=== PATIENT | female | born 1990 ===

== ENCOUNTER 2021-08-23 20:47 | Inpatient (IN) | payer BC ==
[2021-08-23] MEDS ORDERED: Nalbuphine 10 MG/1 ML Vial IVPUSH PRN (21:50)
[2021-08-23] MEDS ORDERED: Misoprostol 200 MCG Tab PO PRN (21:50)
[2021-08-23] MEDS ORDERED: Sodium Chloride 0.9% 10 ML Syringe FLUSH PRN (21:50)
[2021-08-23] MEDS ORDERED: Lidocaine 1% 50 ML MDV INJECT PRN (21:50)
[2021-08-23] MEDS ORDERED: Butorphanol 1 MG/ML SDV IVPUSH PRN (21:50)
[2021-08-23] MEDS ORDERED: Methylergonovine 0.2 MG/1 ML Amp IM PRN (21:50)
[2021-08-23] MEDS ORDERED: Sodium Chloride 0.9% 10 ML SDV IV PRN (21:50)
[2021-08-23] MEDS ORDERED: Tranexamic Acid 1,000 MG in Sodium Chloride 0.9% 100 ML IV PRN (21:50)
[2021-08-23] MEDS ORDERED: Carboprost Tromethamine 250 MCG/1 ML Amp IM PRN (21:50)
[2021-08-23] MEDS ORDERED: Water For Irrigation,Sterile 1,000 ML Container IRR PRN (21:50)
[2021-08-23] MEDS ORDERED: Sodium Chloride 0.9% 2.5 ML Syringe FLUSH PRN (21:50)
[2021-08-23] MEDS ORDERED: Oxytocin/0.9 % Sodium Chloride 30 UNIT/500 ML BAG IV SCH (22:00)
[2021-08-23] MEDS: Lactated Ringers 1,000 ML IV SCH ×2 (22:10→23:40)
--- NOTE | 2021-08-23 22:47 | PCM.PREANE ---
Preanesthetic Assessment - Anesthesia/Transfusion/Family Hx Anesthesia History: No Prior Anesthesia Family History of Anesthesia Reaction: No Transfusion History: No Prior Transfusion(s) - Review of Systems General: No Symptoms Pulmonary: No Symptoms Cardiovascular: No Symptoms Gastrointestinal: No Symptoms Neurological: No Symptoms Other: Reports: None - Physical Assessment NPO Status Date: 08/23/21 NPO Status Time: 20:00 Height: 1.57 m Weight: 62.142 kg ASA Class: 2 Mental Status: Alert & Oriented x3 Airway Class: Mallampati = 2 Dentition: Reports: Normal Dentition Thyro-Mental Finger Breadths: 3 Mouth Opening Finger Breadths: 2 ROM/Head Extension: Full Lungs: Clear to Auscultation, Normal Respiratory Effort Cardiovascular: Regular Rate, Regular Rhythm - Lab Values: Laboratory Last Values Membrane Rupture POSITIVE 08/23/21 21:10 - Allergies Allergies/Adverse Reactions: Allergies Allergy/AdvReac Type Severity Reaction Status Date / Time No Known Allergies Allergy Verified 08/23/21 21:02 - Blood Blood Available: Yes Product(s) Available: PRBC (Type and Cross) - Anesthesia Plan Pre-Op Medication Ordered: None - Acknowledgements Anesthesia Type Planned: Epidural Pt an Appropriate Candidate for the Planned Anesthesia: Yes Alternatives and Risks of Anesthesia Discussed w Pt/Guardian: Yes Pt/Guardian Understands and Agrees with Anesthesia Plan: Yes PreAnesthesia Questionnaire - HOME MEDS Home Medications: Home Meds . [No Known Home Meds] 08/23/21 [History] - CURRENT (IN HOUSE) MEDS Current Meds: Current Medications Butorphanol Tartrate (Butorphanol 1 Mg/Ml Sdv) 1 mg IVPUSH Q1H PRN PRN Reason: Pain (severe 7-10) Carboprost Tromethamine (Carboprost Tromethamine 250 Mcg/1 Ml Amp) 250 mcg IM ASDIRECTED PRN PRN Reason: Post Hemorrhage Lactated Ringer's (Ringers, Lactated) 1,000 mls @ 150 mls/hr IV ASDIRECTED [facility] Last Admin: 08/23/21 22:10 Dose: 150 mls/hr Documented by: Oxytocin/Sodium Chloride (Oxytocin 30 Unit In Ns 0.9% 500 Ml Premix) 30 unit in 500 mls @ 500 mls/hr IV TITRATE [facility] Tranexamic Acid 1,000 mg/ (Sodium Chloride) 110 mls @ 660 mls/hr IV ONETIME PRN PRN Reason: Bleeding Lidocaine HCl (Lidocaine 1% 50 Ml Mdv) 50 ml INJECT ONETIME PRN PRN Reason: Laceration repair Methylergonovine Maleate (Methylergonovine 0.2 Mg/1 Ml Amp) 0.2 mg IM ASDIRECTED PRN PRN Reason: Post Hemorrhage Misoprostol (Misoprostol 200 Mcg Tab) 200 mcg PO ONETIME PRN PRN Reason: Post Hemorrhage Nalbuphine HCl (Nalbuphine 10 Mg/1 Ml Vial) 10 mg IVPUSH Q1H PRN PRN Reason: Pain (severe 7-10) Sodium Chloride (Sodium Chloride 0.9% 10 Ml Syringe) 10 ml FLUSH ASDIRECTED PRN PRN Reason: Keep Vein Open Sodium Chloride (Sodium Chloride 0.9% 2.5 Ml Syringe) 2.5 ml FLUSH ASDIRECTED PRN PRN Reason: Keep Vein Open Sodium Chloride (Sodium Chloride 0.9% 10 Ml Sdv) 10 ml IV ASDIRECTED PRN PRN Reason: IV Use Sterile Water (Water For Irrigation,Sterile 1,000 Ml Container) 1,000 ml IRR ASDIRECTED PRN PRN Reason: delivery
[2021-08-23] MEDS ORDERED: ePHEDrine 50 MG/ML SDV IVPUSH PRN (22:48)
[2021-08-23] MEDS ORDERED: Ropivacaine HCl/PF 200 ML ONE (23:00)
[2021-08-23] MEDS ORDERED: Ropivacaine/PF 400 MG/200 ML PCA EPIDUR SCH (23:00)
--- NOTE | 2021-08-23 23:47 | PCM.SN.2 ---
Time Documentation - Pre-Procedure Checklist Attending Provider Aware: Yes Chart Reviewed: Yes Consent Signed: Yes Labs Reviewed: Yes VS/FHR Reviewed: Yes Patient Identification Confirmation Method: Reports: Chart Visual, Verbal Patient Pt an Appropriate Candidate for the Planned Anesthesia: Yes Alternatives and Risks of Anesthesia Discussed w Pt/Guardian: Yes - Procedure Procedure Start Date: 08/23/21 Procedure Start Time: 23:[address]: Reports: Blood Pressure, Heart Rate, SPO2 Functional IV: Yes Bolus Infused (fluid type and amount): 1000 lr Safety Measures: Reports: Patient Identified, Procedure Verified, Site Verified, Procedure Time Out Patient Position: Reports: Sitting Prep: Reports: Betadine x3 Local Anesthetic: Reports: Intradermal Wheal w Lidocaine 1% (3 ml) Regional Placement Level: Reports: L3-4 Needle: Reports: 17 g Touhy Approach: Reports: Midline Technique: Reports: ROBERT Glass Syringe ROBERT Needle Depth (cm): 6 cm Parasthesia: Reports: None Fluid Obtained: Reports: None Catheter Depth at Skin (cm): 15 cm Test Dose Time: 23:29 Test Dose Medication: Reports: Lidocaine 1.5% w Epinephrine 1:200,000 (5 ml) Test Dose Response: Reports: Negative Loading Dose Time: 23:35 Loading Dose Medication: Ropivicaine 0.2% Loading Dose Patient Position: Supine Continuous Infusion Start Time: 23:36 Continuous Infusion Medication: Ropivicaine 0.2% Continuous Infusion Rate: 10 Continuous Infusion PCS Bolus Option: 4 Continuous Infusion Lockout Dose (cc/hr): 15 Patient Position Post Placement: Reports: Supline/BECKI Post-procedure Pain Level: 2 Level Achieved: t4 VS and FHR Monitored in Unit Post Placement: Yes Procedure End Date: 08/24/21 Procedure End Time: 00:10 Procedure Comment: Sterile technique used throughout
--- NOTE | 2021-08-23 23:48 | PCM.POSTAN ---
POST ANESTHESIA ASSESSMENT - MENTAL STATUS Mental Status: Alert, Oriented - RESPIRATORY Respiratory Status: Respiratory Rate WNL, Airway Patent, O2 Saturation Stable - CARDIOVASCULAR CV Status: Pulse Rate WNL, Blood Pressure Stable - GASTROINTESTINAL GI Status: No Symptoms - PAIN Pain Score: 2 - POST OP HYDRATION Hydration Status: Adequate & Stable
--- NOTE | 2021-08-24 01:01 | PCM.LDHP ---
L&D History of Present Illness - General Date of Service: 08/24/21 Admit Problem/Dx: Patient Status Order with Admit Dx/Problem 08/23/21 20:41 Patient Status [ADT] Routine 08/23/21 21:51 Patient Status [ADT] Routine Admission Diagnosis/Problem Admission Diagnosis/Problem - History of Present Illness Introduction:: 30yo at 38w1d RUDY 09/06/2021 by LMP confirmed with 10w6d US presenting with rupture of membranes. Patient had gush of clear fluid around 7PM, continue to having leaking after. She started having strong contractions as well after presenting to labor and delivery. was uncomplicated. GBS negative. Pain Score: 2 - Related Data Allergies/Adverse Reactions: Allergies Allergy/AdvReac Type Severity Reaction Status Date / Time No Known Allergies Allergy Verified 08/23/21 21:02 Home Medications: Home Meds . [No Known Home Meds] 08/23/21 [History] H&P Review of Systems - Review of Systems: Review Of Systems: See Below General: Reports: No Symptoms HEENT: Reports: No Symptoms Pulmonary: Reports: No Symptoms Cardiovascular: Reports: No Symptoms Gastrointestinal: Reports: No Symptoms Genitourinary: Reports: Other (Loss of fluid, contractions) Musculoskeletal: Reports: No Symptoms Skin: Reports: No Symptoms Psychiatric: Reports: No Symptoms Neurological: Reports: No Symptoms Hematologic/Lymphatic: Reports: No Symptoms Immunologic: Reports: No Symptoms L&D Exam - Exam Exam: See Below - Vital Signs Weight: 137 lb - OB Specific Contraction Intensity: Moderate to Strong Movement: Active Heart Tones per Min: 120 Heart Rate (FHR) Variability: Moderate (6-25 bpm) Presentation: Vertex - Exam General: Alert, Oriented, Cooperative HEENT: Conjunctiva Clear, EACs Clear, EOMI Neck: Supple, Trachea Midline Lungs: Normal Respiratory Effort GI/Abdominal Exam: Soft, Non-Tender, No Distention Genitourinary: Other (4cm dilated per patient nurse, amniosure positive) Back Exam: Normal Inspection Extremities: Normal Inspection, Normal Range of Motion, Non-Tender, No Pedal Edema Skin: Warm, Dry, Intact Neurological: Cranial Nerves Intact, Reflexes Equal Bilateral Psychiatric: Alert, Normal Affect, Normal Mood - Patient Data Lab Results Last 24 hrs: Laboratory Results - last 24 hr 08/23/21 08/23/2121 Range/Units 21:10 22:10 22:10 WBC 9.65 (4.0-11.0) K/uL RBC 4.33 (4.30-5.90) M/uL Hgb 10.9 L (12.0-16.0) g/dL Hct 32.8 L (36.0-46.0) % MCV 75.8 L (80.0-98.0) fL MCH 25.2 L (27.0-32.0) pg MCHC 33.2 (31.0-37.0) g/dL RDW Std Deviation 38.7 (28.0-62.0) fl RDW Coeff of So 14 (11.0-15.0) % Plt Count 190 (150-400) K/uL MPV 11.80 (7.40-12.00) fL Nucleated RBC % 0.0 /100WBC Nucleated RBCs # 0 K/uL Membrane Rupture POSITIVE SARS-CoV-2 RNA ([facility]) (NEGATIVE) Blood Type B POSITIVE Antibody Screen NEGATIVE 08/23/21 Range/Units 22:30 WBC (4.0-11.0) K/uL RBC (4.30-5.90) M/uL Hgb (12.0-16.0) g/dL Hct (36.0-46.0) % MCV (80.0-98.0) fL MCH (27.0-32.0) pg MCHC (31.0-37.0) g/dL RDW Std Deviation (28.0-62.0) fl RDW Coeff of So (11.0-15.0) % Plt Count (150-400) K/uL MPV (7.40-12.00) fL Nucleated RBC % /100WBC Nucleated RBCs # K/uL Membrane Rupture SARS-CoV-2 RNA ([facility]) NEGATIVE (NEGATIVE) Blood Type Antibody Screen Result Diagrams: 08/23/21 22:10 Problem List Initiated/Reviewed/Updated: Yes Orders Last 24hrs: Active Orders 24 hr Category Date Time Status Patient Status [ADT] Routine ADT 08/23/21 20:41 Active Patient Status [ADT] Routine ADT 08/23/21 21:51 Active Communication Order [RC] PRN Care 08/23/21 22:48 Active Heart Tones [RC] CONTINUOUS Care 08/23/21 21:51 Active Non Stress Test [RC] PER UNIT ROUTINE Care 08/23/21 20:41 Active Non Stress Test [RC] PER UNIT ROUTINE Care 08/23/21 21:51 Active May Shower [RC] ASDIRECTED Care 08/23/21 21:51 Active Notify Provider [RC] PRN Care 08/23/21 21:51 Active Up ad Evonne [RC] ASDIRECTED Care 08/23/21 21:26 Active Up ad Evonne [RC] ASDIRECTED Care 08/23/21 21:51 Active Vaginal Exam [RC] Click to Edit Care 08/23/21 21:26 Active Vaginal Exam [RC] PRN Care 08/23/21 21:51 Active Vital Signs [RC] PER UNIT ROUTINE Care 08/23/21 21:26 Active Vital Signs [RC] PER UNIT ROUTINE Care 08/23/21 21:51 Active RPR (SYPHILIS SERO) W/ RFLX [REF] Routine Lab 08/23/21 22:28 Received Butorphanol [Stadol] Med 08/23/21 21:50 Active 1 mg IVPUSH Q1H PRN Carboprost Tromethamine [Hemabate DS] Med 08/23/21 21:50 Active 250 mcg IM ASDIRECTED PRN Lactated Ringers [Ringers, Lactated] 1,000 ml Med 08/23/21 22:00 Active IV ASDIRECTED Lidocaine 1% [Xylocaine 1%] Med 08/23/21 21:50 Active 50 ml INJECT ONETIME PRN Methylergonovine [Methergine] Med 08/23/21 21:50 Active 0.2 mg IM ASDIRECTED PRN Nalbuphine [Nubain] Med 08/23/21 21:50 Active 10 mg IVPUSH Q1H PRN Oxytocin/0.9 % Sodium Chloride [Oxytocin 30 Unit in NS Med 08/23/21 22:00 Active 0.9% 500 ML Premix] 30 unit in 500 ml IV TITRATE Phenylephrine HCl In 0.9% NaCl [Phenylephrine 1 MG/10 Med 08/23/21 22:48 Active ML-NS] 0.1 mg IVPUSH Q1M PRN Ropivacaine HCl/PF [Ropivacaine 0.2% [employer]ENDANT 400 MG in 200 Med 08/23/21 23:00 Active ML] 400 mg EPIDUR ASDIRECTED Sodium Chloride 0.9% [Normal Saline] Med 08/23/21 21:50 Active 10 ml IV ASDIRECTED PRN Sodium Chloride 0.9% [Saline Flush] Med 08/23/21 21:50 Active 10 ml FLUSH ASDIRECTED PRN Sodium Chloride 0.9% [Saline Flush] Med 08/23/21 21:50 Active 2.5 ml FLUSH ASDIRECTED PRN Tranexamic Acid [Cyklokapron] 1,000 mg Med 08/23/21 21:50 Active Sodium Chloride 0.9% [Normal Saline] 100 ml IV ONETIME Water For Irrigation,Sterile [Sterile Water for Med 08/23/21 21:50 Active Irrigation] 1,000 ml IRR ASDIRECTED PRN ePHEDrine [ePHEDrine sulfate] Med 08/23/21 22:48 Active 10 mg IVPUSH Q1M PRN miSOPROStoL [Cytotec] Med 08/23/21 21:50 Active 200 mcg PO ONETIME PRN Scalp Electrode [WOMSER] Per Unit Routine Oth 08/23/21 21:51 Ordered Peripheral IV Insertion Adult [OM.PC] Routine Oth 08/23/21 21:51 Ordered Resuscitation Status Routine Resus Stat 08/23/21 21:26 Ordered Medication Orders Butorphanol Tartrate (Butorphanol 1 Mg/Ml Sdv) 1 mg IVPUSH Q1H PRN PRN Reason: Pain (severe 7-10) Carboprost Tromethamine (Carboprost Tromethamine 250 Mcg/1 Ml Amp) 250 mcg IM ASDIRECTED PRN PRN Reason: Post Hemorrhage Ephedrine Sulfate (Ephedrine 50 Mg/Ml Sdv) 10 mg IVPUSH Q1M PRN PRN Reason: Hypotension Lactated Ringer's (Ringers, Lactated) 1,000 mls @ 150 mls/hr IV ASDIRECTED [facility] Last Admin: 08/23/21 23:40 Dose: 150 mls/hr Documented by: Infusion: 08/23/21 23:40 Dose: 150 mls/hr Documented by: Admin: 08/23/21 22:10 Dose: 150 mls/hr Documented by: RATLRAC Oxytocin/Sodium Chloride (Oxytocin 30 Unit In Ns 0.9% 500 Ml Premix) 30 unit in 500 mls @ 500 mls/hr IV TITRATE [facility] Tranexamic Acid 1,000 mg/ (Sodium Chloride) 110 mls @ 660 mls/hr IV ONETIME PRN PRN Reason: Bleeding Lidocaine HCl (Lidocaine 1% 50 Ml Mdv) 50 ml INJECT ONETIME PRN PRN Reason: Laceration repair Methylergonovine Maleate (Methylergonovine 0.2 Mg/1 Ml Amp) 0.2 mg IM ASDIRECTED PRN PRN Reason: Post Hemorrhage Miscellaneous Medication (Phenylephrine Hcl In 0.9% Nacl 1 Mg/10 Ml Syringe) 0.1 mg IVPUSH Q1M PRN PRN Reason: Hypotension Misoprostol (Misoprostol 200 Mcg Tab) 200 mcg PO ONETIME PRN PRN Reason: Post Hemorrhage Nalbuphine HCl (Nalbuphine 10 Mg/1 Ml Vial) 10 mg IVPUSH Q1H PRN PRN Reason: Pain (severe 7-10) Ropivacaine (Ropivacaine/Pf 400 Mg/200 Ml Cloth Hauler) 400 mg EPIDUR ASDIRECTED [facility] Sodium Chloride (Sodium Chloride 0.9% 10 Ml Syringe) 10 ml FLUSH ASDIRECTED PRN PRN Reason: Keep Vein Open Sodium Chloride (Sodium Chloride 0.9% 2.5 Ml Syringe) 2.5 ml FLUSH ASDIRECTED PRN PRN Reason: Keep Vein Open Sodium Chloride (Sodium Chloride 0.9% 10 Ml Sdv) 10 ml IV ASDIRECTED PRN PRN Reason: IV Use Sterile Water (Water For Irrigation,Sterile 1,000 Ml Container) 1,000 ml IRR ASDIRECTED PRN PRN Reason: delivery Assessment/Plan Comment:: 30yo at 38w1d presenting with SROM and early labor. Rupture confirmed with amniosure - will admit to L&D - labs CBC, RPR, T&S, COVID 19 test - Cat 1 tracing - Blood type B+, Rubella immune - GBS negative - Desires epidural Expectantly manage. Anticipate vaginal delivery.
[2021-08-24] MEDS ORDERED: Misoprostol 200 MCG Tab RECTAL PRN (05:59)
[2021-08-24] MEDS ORDERED: Methylergonovine 0.2 MG/1 ML Amp IM PRN (05:59)
[2021-08-24] MEDS ORDERED: Ibuprofen 400 MG Tab PO PRN (05:59)
[2021-08-24] MEDS ORDERED: Acetaminophen 500 MG Tab PO PRN ×2 (05:59)
[2021-08-24] MEDS ORDERED: Bisacodyl 10 MG Supp RECTAL PRN (05:59)
[2021-08-24] MEDS ORDERED: Lanolin 100% Cream 7 GM Tube TOP PRN (05:59)
[2021-08-24] MEDS ORDERED: Docusate Sodium 100 MG Cap PO PRN (05:59)
[2021-08-24] MEDS ORDERED: oxyCODONE 5 MG Tab PO PRN (05:59)
[2021-08-24] MEDS ORDERED: Benzocaine/Menthol 20%-0.5% Spray 78 GM Cannister TOP PRN (05:59)
[2021-08-24] MEDS ORDERED: Carboprost Tromethamine 250 MCG/1 ML Amp IM PRN (05:59)
[2021-08-24] MEDS ORDERED: Witch Hazel Medicated Pads 40/Jar TOP PRN (05:59)
--- NOTE | 2021-08-24 12:25 | OR ---
SURGEON: Rayray Robles MD DATE OF PROCEDURE: 08/24/2021 INDICATION FOR PROCEDURE: A 30-year-old G1, P0, at 38 weeks 1 day, presenting with spontaneous rupture of membranes and early labor. The patient reports she had a gush of clear fluid around 8:30 p.m. at home today. She then continued to have leaking. After arriving to Labor and Delivery, she started having strong regular contractions. Rupture was confirmed with amniosure. The was uncomplicated. She is GBS negative. The patient desired an epidural for pain control, which she received. The baby was category 1 tracing. She was 4 cm on admission and quickly progressed to 9 cm, then fully dilated within the next few hours. She had passive descent for about 2 hours, and the head descended to +1 station. She then began pushing with contractions. PREOPERATIVE DIAGNOSES: 1. [place] intrauterine at 38 weeks 1 day. 2. Active stage of labor. POSTOPERATIVE DIAGNOSES: 1. [place] intrauterine at 38 weeks 1 day. 2. Active stage of labor. PROCEDURES PERFORMED: 1. Normal spontaneous vaginal delivery. 2. Repair of second-degree laceration. ANESTHESIA: Epidural. FINDINGS: Viable female . of 8 and 9. weight of 2710g. ESTIMATED BLOOD LOSS: 500 mL. DESCRIPTION OF PROCEDURE: The patient pushed with contractions for about one hour with good descent, and head delivered in occiput anterior position over intact perineum, restituted ROT. Anterior shoulder delivered easily followed by posterior shoulder and body. No nuchal cord was noted. The baby was placed on maternal chest and evaluated by awaiting nursery staff. The baby was pink, crying, and moving all extremities quickly after delivery. Umbilical cord was clamped and cut after about 3 minutes and no longer pulsating. Cord gases were obtained. The placenta was removed with gentle traction on the umbilical cord. It was examined to be intact with 3- vessel cord. The vagina and perineum were examined. She had a second-degree perineal laceration, which was repaired with 2-0 Vicryl in the usual fashion. Hemostasis was confirmed after the repair. Fundal massage was performed. She initially had uterine atony with some clots, which improved after bimanual massage. The patient tolerated the procedure well and was given care instructions. VIANNEY DIEHL /[id number] MTDD
--- NOTE | 2021-08-24 12:28 | PCM48HPAN ---
Post Anesthesia Note - EVALUATION WITHIN 48HRS OF ANESTHETIC Vital Signs in Normal Range: Yes Patient Participated in Evaluation: Yes Respiratory Function Stable: Yes Airway Patent: Yes Cardiovascular Function Stable: Yes Hydration Status Stable: Yes Pain Control Satisfactory: Yes Nausea and Vomiting Control Satisfactory: Yes Mental Status Recovered: Yes Vital Signs: Last Vital Signs Temp 36.9 C 08/24/21 09:05 Pulse 106 H 08/24/21 09:05 Resp 16 08/24/21 09:05 BP 120/80 08/24/21 09:05 Pulse Ox 99 08/24/21 09:05 - COMMENTS/OBSERVATIONS Free Text/Narrative:: Patient visited in room and states that epidural provided adequate analgesia for labor and deliver. Patient denies signs and symptoms of infection or neurological compromise and states to being up walking with no residual weakness.
[2021-08-24] MEDS: Ibuprofen 800 MG Tab PO PRN (17:16)
[2021-08-25] MEDS: Ibuprofen 800 MG Tab PO PRN ×2 (02:35→19:47)
--- NOTE | 2021-08-25 10:50 | PCM.PNPP ---
- General Info Date of Service: 08/25/21 Admission Dx/Problem (Free Text): Patient Status Order with Admit Dx/Problem 08/23/21 20:41 Patient Status [ADT] Routine 08/23/21 21:51 Patient Status [ADT] Routine Admission Diagnosis/Problem Admission Diagnosis/Problem Subjective Update: Patient seen at bedside , denies any complains Normal Lochia Functional Status: Reports: Pain Controlled, Tolerating Diet, Ambulating, Urinating - Review of Systems General: Reports: No Symptoms HEENT: Reports: No Symptoms Pulmonary: Reports: No Symptoms Cardiovascular: Reports: No Symptoms Gastrointestinal: Reports: No Symptoms Genitourinary: Reports: No Symptoms Musculoskeletal: Reports: No Symptoms Skin: Reports: No Symptoms Neurological: Reports: No Symptoms Psychiatric: Reports: No Symptoms - General Info Date of Service: 08/25/21 - Patient Data Vital Signs - Most Recent: Last Vital Signs Temp 36.2 C 08/25/21 08:00 Pulse 70 08/25/21 08:00 Resp 18 08/25/21 08:00 BP 120/75 08/25/21 08:00 Pulse Ox 97 08/25/21 08:00 Weight - Most Recent: 62.142 kg Lab Results - Last 24 Hours: Laboratory Results - last 24 hr 08/25/21 Range/Units 05:20 Hgb 8.4 L (12.0-16.0) g/dL Hct 25.3 L (36.0-46.0) % Med Orders - Current: Current Medications Acetaminophen (Acetaminophen 500 Mg Tab) 500 mg PO Q4H PRN PRN Reason: Pain (mild 1-3) Acetaminophen (Acetaminophen 500 Mg Tab) 1,000 mg PO Q4H PRN PRN Reason: Pain (mild 1-3) Benzocaine/Menthol (Benzocaine/Menthol 20%-0.5% [place] 78 Gm Cannister) 78 gm TOP ASDIRECTED PRN PRN Reason: Perineal Comfort Measure Last Admin: 08/24/21 08:06 Dose: 1 canister Documented by: Bisacodyl (Bisacodyl 10 Mg Supp) 10 mg RECTAL ONETIME PRN PRN Reason: Constipation Carboprost Tromethamine (Carboprost Tromethamine 250 Mcg/1 Ml Amp) 250 mcg IM ASDIRECTED PRN PRN Reason: Excessive vaginal bleeding Docusate Sodium (Docusate Sodium 100 Mg Cap) 100 mg PO Q12H PRN PRN Reason: Constipation Emollient Ointment (Lanolin 100% Cream 7 Gm Tube) 0 gm TOP ASDIRECTED PRN PRN Reason: Sore Nipples Last Admin: 08/24/21 08:06 Dose: 1 tube Documented by: Ephedrine Sulfate (Ephedrine 50 Mg/Ml Sdv) 10 mg IVPUSH Q1M PRN PRN Reason: Hypotension Ibuprofen (Ibuprofen 400 Mg Tab) 400 mg PO Q4H PRN PRN Reason: Pain (mild 1-3) Ibuprofen (Ibuprofen 800 Mg Tab) 800 mg PO Q6H PRN PRN Reason: Cramping Last Admin: 08/25/21 02:35 Dose: 800 mg Documented by: Methylergonovine Maleate (Methylergonovine 0.2 Mg/1 Ml Amp) 0.2 mg IM ONETIME PRN PRN Reason: Excessive Vaginal Bleeding Miscellaneous Medication (Phenylephrine Hcl In 0.9% Nacl 1 Mg/10 Ml Syringe) 0.1 mg IVPUSH Q1M PRN PRN Reason: Hypotension Misoprostol (Misoprostol 200 Mcg Tab) 1,000 mcg RECTAL ONETIME PRN PRN Reason: excessive vaginal bleeding Oxycodone HCl (Oxycodone 5 Mg Tab) 5 mg PO Q2H PRN PRN Reason: Pain (severe 7-10) Ropivacaine (Ropivacaine/Pf 400 Mg/200 Ml Account [employer]) 400 mg EPIDUR ASDIRECTED [facility] Sodium Chloride (Sodium Chloride 0.9% 10 Ml Syringe) 10 ml FLUSH ASDIRECTED PRN PRN Reason: Keep Vein Open Sodium Chloride (Sodium Chloride 0.9% 2.5 Ml Syringe) 2.5 ml FLUSH ASDIRECTED PRN PRN Reason: Keep Vein Open Sodium Chloride (Sodium Chloride 0.9% 10 Ml Sdv) 10 ml IV ASDIRECTED PRN PRN Reason: IV Use Witch Nasra (Witch Nasra Medicated Pads 40/Jar) 1 pad TOP ASDIRECTED PRN PRN Reason: comfort care Last Admin: 08/24/21 08:06 Dose: 1 tub Documented by: Discontinued Medications Butorphanol Tartrate (Butorphanol 1 Mg/Ml Sdv) 1 mg IVPUSH Q1H PRN PRN Reason: Pain (severe 7-10) Carboprost Tromethamine (Carboprost Tromethamine 250 Mcg/1 Ml Amp) 250 mcg IM ASDIRECTED PRN PRN Reason: Post Hemorrhage Lactated Ringer's (Ringers, Lactated) 1,000 mls @ 150 mls/hr IV ASDIRECTED [facility] Last Admin: 08/23/21 23:40 Dose: 150 mls/hr Documented by: Oxytocin/Sodium Chloride (Oxytocin 30 Unit In Ns 0.9% 500 Ml Premix) 30 unit in 500 mls @ 500 mls/hr IV TITRATE [facility] Last Admin: 08/24/21 04:58 Dose: 500 mls/hr Documented by: Tranexamic Acid 1,000 mg/ (Sodium Chloride) 110 mls @ 660 mls/hr IV ONETIME PRN PRN Reason: Bleeding Ropivacaine (Naropin 0.2%) Confirm Administered Dose 200 mls @ as directed .ROUTE .[facility] Stop: 08/23/21 23:01 Lidocaine HCl (Lidocaine 1% 50 Ml Mdv) 50 ml INJECT ONETIME PRN PRN Reason: Laceration repair Methylergonovine Maleate (Methylergonovine 0.2 Mg/1 Ml Amp) 0.2 mg IM ASDIRECTED PRN PRN Reason: Post Hemorrhage Misoprostol (Misoprostol 200 Mcg Tab) 200 mcg PO ONETIME PRN PRN Reason: Post Hemorrhage Nalbuphine HCl (Nalbuphine 10 Mg/1 Ml Vial) 10 mg IVPUSH Q1H PRN PRN Reason: Pain (severe 7-10) Sterile Water (Water For Irrigation,Sterile 1,000 Ml Container) 1,000 ml IRR ASDIRECTED PRN PRN Reason: delivery - Infant Interaction Support Person: Significant Other - Recovery Exam Fundal Tone: Firm Fundal Level: 1 Fingerbreadths Below Umbilicus Fundal Placement: Midline Lochia Amount: Scant Lochia Color: Rubra/Red Perineum Description: Other (see below) Other Perinuem Description: repaired 2nd degree laceration Episiotomy/Laceration: Approximated Bladder Status: Voiding Urinary Elimination: Voided - Exam General: Alert HEENT: Pupils Equal Neck: Supple Lungs: Clear to Auscultation Cardiovascular: Regular Rate, Regular Rhythm GI/Abdominal Exam: Normal Bowel Sounds Extremities: Normal Inspection Neurological: No New Focal Deficit - Problem List & Annotations (1) Vaginal delivery SNOMED Code(s): 729803244 Code(s): O80 - ENCOUNTER FOR FULL-TERM UNCOMPLICATED DELIVERY Status: Acute Current Visit: Yes - Problem List Review Problem List Initiated/Reviewed/Updated: Yes - Assessment Assessment:: 30yo P1 s/p PPD1 - Plan Plan:: Pain control as needed Routine care Discharge home tomorrow .
--- NOTE | 2021-08-26 11:06 | PCM.PNPP ---
- General Info Date of Service: 08/26/21 Functional Status: Reports: Pain Controlled, Tolerating Diet, Ambulating, Urinating - Review of Systems General: Reports: No Symptoms HEENT: Reports: No Symptoms Pulmonary: Reports: No Symptoms Cardiovascular: Reports: No Symptoms Gastrointestinal: Reports: No Symptoms Genitourinary: Reports: No Symptoms Musculoskeletal: Reports: No Symptoms Skin: Reports: No Symptoms Neurological: Reports: No Symptoms Psychiatric: Reports: No Symptoms - Patient Data Vital Signs - Most Recent: Last Vital Signs Temp 36.4 C 08/26/21 07:53 Pulse 66 08/26/21 07:53 Resp 16 08/26/21 07:53 BP 109/74 08/26/21 07:53 Pulse Ox 98 08/26/21 07:53 Weight - Most Recent: 137 lb Med Orders - Current: Current Medications Acetaminophen (Acetaminophen 500 Mg Tab) 500 mg PO Q4H PRN PRN Reason: Pain (mild 1-3) Acetaminophen (Acetaminophen 500 Mg Tab) 1,000 mg PO Q4H PRN PRN Reason: Pain (mild 1-3) Benzocaine/Menthol (Benzocaine/Menthol 20%-0.5% [place] 78 Gm Cannister) 78 gm TOP ASDIRECTED PRN PRN Reason: Perineal Comfort Measure Last Admin: 08/24/21 08:06 Dose: 1 canister Documented by: Bisacodyl (Bisacodyl 10 Mg Supp) 10 mg RECTAL ONETIME PRN PRN Reason: Constipation Carboprost Tromethamine (Carboprost Tromethamine 250 Mcg/1 Ml Amp) 250 mcg IM ASDIRECTED PRN PRN Reason: Excessive vaginal bleeding Docusate Sodium (Docusate Sodium 100 Mg Cap) 100 mg PO Q12H PRN PRN Reason: Constipation Emollient Ointment (Lanolin 100% Cream 7 Gm Tube) 0 gm TOP ASDIRECTED PRN PRN Reason: Sore Nipples Last Admin: 08/24/21 08:06 Dose: 1 tube Documented by: Ephedrine Sulfate (Ephedrine 50 Mg/Ml Sdv) 10 mg IVPUSH Q1M PRN PRN Reason: Hypotension Ibuprofen (Ibuprofen 400 Mg Tab) 400 mg PO Q4H PRN PRN Reason: Pain (mild 1-3) Ibuprofen (Ibuprofen 800 Mg Tab) 800 mg PO Q6H PRN PRN Reason: Cramping Last Admin: 08/25/21 19:47 Dose: 800 mg Documented by: Methylergonovine Maleate (Methylergonovine 0.2 Mg/1 Ml Amp) 0.2 mg IM ONETIME PRN PRN Reason: Excessive Vaginal Bleeding Miscellaneous Medication (Phenylephrine Hcl In 0.9% Nacl 1 Mg/10 Ml Syringe) 0.1 mg IVPUSH Q1M PRN PRN Reason: Hypotension Misoprostol (Misoprostol 200 Mcg Tab) 1,000 mcg RECTAL ONETIME PRN PRN Reason: excessive vaginal bleeding Oxycodone HCl (Oxycodone 5 Mg Tab) 5 mg PO Q2H PRN PRN Reason: Pain (severe 7-10) Ropivacaine (Ropivacaine/Pf 400 Mg/200 Ml Testing Shaking Shipping) 400 mg EPIDUR ASDIRECTED [place] Sodium Chloride (Sodium Chloride 0.9% 10 Ml Syringe) 10 ml FLUSH ASDIRECTED PRN PRN Reason: Keep Vein Open Sodium Chloride (Sodium Chloride 0.9% 2.5 Ml Syringe) 2.5 ml FLUSH ASDIRECTED PRN PRN Reason: Keep Vein Open Sodium Chloride (Sodium Chloride 0.9% 10 Ml Sdv) 10 ml IV ASDIRECTED PRN PRN Reason: IV Use Witch Nasra (Witch Nasra Medicated Pads 40/Jar) 1 pad TOP ASDIRECTED PRN PRN Reason: comfort care Last Admin: 08/24/21 08:06 Dose: 1 tub Documented by: Discontinued Medications Butorphanol Tartrate (Butorphanol 1 Mg/Ml Sdv) 1 mg IVPUSH Q1H PRN PRN Reason: Pain (severe 7-10) Carboprost Tromethamine (Carboprost Tromethamine 250 Mcg/1 Ml Amp) 250 mcg IM ASDIRECTED PRN PRN Reason: Post Hemorrhage Lactated Ringer's (Ringers, Lactated) 1,000 mls @ 150 mls/hr IV ASDIRECTED [facility] Last Admin: 08/23/21 23:40 Dose: 150 mls/hr Documented by: Oxytocin/Sodium Chloride (Oxytocin 30 Unit In Ns 0.9% 500 Ml Premix) 30 unit in 500 mls @ 500 mls/hr IV TITRATE [facility] Last Admin: 08/24/21 04:58 Dose: 500 mls/hr Documented by: Tranexamic Acid 1,000 mg/ (Sodium Chloride) 110 mls @ 660 mls/hr IV ONETIME PRN PRN Reason: Bleeding Ropivacaine (Naropin 0.2%) Confirm Administered Dose 200 mls @ as directed .ROUTE .K-MED ONE Stop: 08/23/21 23:01 Lidocaine HCl (Lidocaine 1% 50 Ml Mdv) 50 ml INJECT ONETIME PRN PRN Reason: Laceration repair Methylergonovine Maleate (Methylergonovine 0.2 Mg/1 Ml Amp) 0.2 mg IM ASDIRECTED PRN PRN Reason: Post Hemorrhage Misoprostol (Misoprostol 200 Mcg Tab) 200 mcg PO ONETIME PRN PRN Reason: Post Hemorrhage Nalbuphine HCl (Nalbuphine 10 Mg/1 Ml Vial) 10 mg IVPUSH Q1H PRN PRN Reason: Pain (severe 7-10) Sterile Water (Water For Irrigation,Sterile 1,000 Ml Container) 1,000 ml IRR ASDIRECTED PRN PRN Reason: delivery - Interaction Disposition, : at Bedside Interaction: Holding Infant Infant Feeding: Breastfed Infant; Nursed Well Support Person: Significant Other - Recovery Exam Fundal Tone: Firm Fundal Level: 1 Fingerbreadths Below Umbilicus Fundal Placement: Midline Lochia Amount: Scant Lochia Color: Rubra/Red Perineum Description: Other (see below) Other Perinuem Description: 2nd degree laceration Episiotomy/Laceration: Approximated Bladder Status: Voiding Urinary Elimination: Voided - Exam General: Alert, Oriented, Cooperative, No Acute Distress HEENT: Pupils Equal, Pupils Reactive, EOMI Neck: Supple, Trachea Midline, No JVD Lungs: Normal Respiratory Effort GI/Abdominal Exam: Soft, Non-Tender, No Distention Extremities: Normal Inspection, Normal Range of Motion, Non-Tender, No Pedal Edema Skin: Warm, Dry, Intact Wound/Incisions: Healing Well Neurological: No New Focal Deficit Psy/Mental Status: Alert, Normal Affect, Normal Mood - Problem List Review Problem List Initiated/Reviewed/Updated: Yes - My Orders Last 24 Hours: My Active Orders 08/26/21 11:01 Ready for Discharge [RC] PER UNIT ROUTINE - Assessment Assessment:: 30yo s/p PPD2 - Plan Plan:: Vital stable Hgb 8.4, bleeding light, advised to start oral iron supplement Pain control as needed Routine care Discharge home today, reviewed care instructions.
== END 2021-08-26 11:53 | disposition home or self-care (01) | DRG 560 ==
LOC: MW.OBCHECK 20:47 → MW.OB 20:49 → MW.OBCHECK 21:26 → OBSVTOIN 08-24 05:07 → MW.OB 08-24 10:10
PROVIDERS: ADMIT Obstetrics & Gynecology; ATTEND Obstetrics & Gynecology
PROC: 10E0XZZ Delivery of Products of Conception, External Approach (ICD-10-PCS; principal; 2021-08-24)
PROC: 0KQM0ZZ Repair Perineum Muscle, Open Approach (ICD-10-PCS; 2021-08-24)
PROC: 3E0R3BZ Introduction of Anesthetic Agent into Spinal Canal, Percutaneous Approach (ICD-10-PCS; 2021-08-24)
DX: O70.1 Second degree perineal laceration during delivery (principal); Z37.0 Single live birth; Z3A.38 38 weeks gestation of pregnancy; Z20.822 Contact with and (suspected) exposure to COVID-19
CPT/HCPCS: 01967; 36415; 51702; 59025; 59409; 84112; 85014; 85018; 85027; 86592; 86850; 86900; 86901; A9270-GY; J2590; J2795; J7120; U0002